=== PATIENT | female | born 1980 | race African-American/Black ===

== ENCOUNTER 2017-09-19 05:40 | Emergency (ER) | payer BC, OTHER ==
[~2017-09-19] VITALS: Ht 172.7 cm; Wt 190.5 kg
[~2017-09-19 05:40] MED LIST: ACCOLATE20 MG PO; ALBUTEROL INHAL17 GM IH; ASTEPRO205.5 MCG/; ATIVAN1 MG PO; AZELASTINE INH; AZITHROMYCIN 2250 MG PO; BACTRIM DS TAB1 EACH PO; BENADRYL25 MG PO; BENAZEPRIL HCL10 MG PO; COZAAR 25 MG TA25 M1 PO; DIPHENHIST50 MG PO; DYRENIUM100 MG PO; FAMOTIDINE PO; FLOVENT HFA 1110 MCG INH; GLUCOPHAGE XR500 MG PO; LOTREL 5-20 MG1 EACH PO; MINOCIN100 MG PO; NASONEX INH; NASONEX17 GM; NORCO 5-325 TA1 EACH PO; NORVASC10 MG; NORVASC10 MG PO; POTASSIUM20 PO; PREDNISONE 20 M20 MG PO; PREDNISONE 5 MG5 MG PO; REGLAN 10 MG TA10 MG PO; SINGULAIR 10 MG10 M1 PO; SSD25 GM TOP; VENTOLIN HFA 1818 GM; XANAX 0.5 MG0.5 MG PO; ZANTAC 150MG T150 MG PO; ZPAK PO; ZYRTEC-D TABLE1 EACH PO; ZYRTEC10 M2 PO; ZYRTEC10 M5
[2017-09-19] MEDS ORDERED: DOXYCYCLINE 10100 MG PO (06:47)
== END 2017-09-19 07:05 | disposition home or self-care (01) ==
LOC: ER 05:40
DX: L02.211 Cutaneous abscess of abdominal wall (principal); I10 Essential (primary) hypertension; E11.9 Type 2 diabetes mellitus without complications; E78.5 Hyperlipidemia, unspecified; J45.909 Unspecified asthma, uncomplicated; Z88.1 Allergy status to other antibiotic agents; Z91.013 Allergy to seafood; Z88.8 Allergy status to other drugs, medicaments and biological substances; Z91.018 Allergy to other foods

== ENCOUNTER 2018-03-30 23:14 | Emergency (ER) | payer BC, OTHER ==
[~2018-03-30] VITALS: Ht 172.7 cm; Wt 190.5 kg
[~2018-03-30 23:14] MED LIST changes: +DOXYCYCLINE 10100 MG PO
[2018-03-30 23:46] LABS: URINE BILIRUBIN NEGATIVE (Negative); URINE BLOOD NEGATIVE (Negative); URINE CLARITY CLEAR; URINE COLOR YELLOW; URINE GLUCOSE-RANDOM* NEGATIVE (Negative); URINE KETONES NEGATIVE (Negative); URINE LEUKOCYTES-REFLEX NEGATIVE (Negative); URINE NITRITE-REFLEX NEGATIVE (Negative); URINE PROTEIN (DIPSTICK) NEGATIVE (Negative); URINE SPECIFIC GRAVITY >= 1.030 (1.005-1.035); URINE UROBILINOGEN 0.2 E.U./dl (0.2-1.0)
[2018-03-31 00:32] LABS: ABSOLUTE NEUTROPHILS 10.3 thou/uL (1.4-8.2); BASOPHILS 0.8 % (0.0-2.0); EOSINOPHILS 2.7 % (0.0-3.0); HEMATOCRIT 33.5 % (37.0-47.0); HEMOGLOBIN 10.6 gm/dL (12.0-15.0); LYMPHOCYTES 22.1 % (24.0-44.0); MCH 22.9 pg (26.0-34.0); MCHC 31.7 g/dL (28.0-37.0); MCV 72.2 fL (80.0-100.0); MONOCYTES 7.4 % (1.0-8.0); RBC 4.63 mil/uL (4.20-5.00); RDW 18.3 % (10.5-14.5); WBC 15.3 thou/uL (4.0-11.0)
[2018-03-31 01:04] LABS: ANISOCYTOSIS 1+; HYPOCHROMASIA 1+; PLATELET COUNT 415 thou/uL (150-400)
[2018-03-31 01:05] LABS: OVALOCYTES OCCASIONAL
[2018-03-31 01:14] LABS: CALCIUM 8.4 mg/dL (8.5-10.1); CREATININE 0.9 mg/dL (0.6-1.0); POTASSIUM 3.5 mmol/L (3.5-5.1)
[2018-03-31] MEDS ORDERED: PREDNISONE 20 M20 MG PO (02:25)
[2018-03-31] MEDS ORDERED: AZITHROMYCIN 2250 MG PO (02:25)
[2018-03-31] MEDS ORDERED: VENTOLIN HFA 1818 GM INH (02:25)
[2018-03-31] MEDS ORDERED: MUCINEX DM ER1 EACH PO (02:25)
[2018-03-31] MEDS ORDERED: ALBUTEROL2.5 MG/31 INH (02:25)
== END 2018-03-31 02:54 | disposition home or self-care (01) ==
LOC: ER 23:14
PROVIDERS: Emergency Medicine
DX: J45.901 Unspecified asthma with (acute) exacerbation (principal); B96.89 Other specified bacterial agents as the cause of diseases classified elsewhere; I10 Essential (primary) hypertension; E11.9 Type 2 diabetes mellitus without complications; E78.5 Hyperlipidemia, unspecified; Z88.1 Allergy status to other antibiotic agents; Z91.018 Allergy to other foods; Z91.013 Allergy to seafood

== ENCOUNTER 2019-04-06 19:33 | Emergency (ER) | payer BC ==
[~2019-04-06] VITALS: Ht 172.7 cm; Wt 213.7 kg
[~2019-04-06 19:33] MED LIST changes: +ALBUTEROL2.5 MG/31 INH; +MUCINEX DM ER1 EACH PO; +VENTOLIN HFA 1818 GM INH
[2019-04-06] MEDS ORDERED: TRIAMTERENE-HC1 EAC3 PO (19:43)
[2019-04-06] MEDS ORDERED: CHLORTHALIDONE50 MG PO (19:44)
[2019-04-06] MEDS ORDERED: PANTOPRAZOLE SO40 M1 PO (19:45)
[2019-04-06 20:58] LABS: URINE BILIRUBIN NEGATIVE (Negative); URINE BLOOD NEGATIVE (Negative); URINE CLARITY CLEAR; URINE COLOR YELLOW; URINE GLUCOSE-RANDOM* NEGATIVE (Negative); URINE KETONES NEGATIVE (Negative); URINE LEUKOCYTES-REFLEX NEGATIVE (Negative); URINE NITRITE-REFLEX NEGATIVE (Negative); URINE PROTEIN (DIPSTICK) NEGATIVE (Negative); URINE SPECIFIC GRAVITY 1.015 (1.005-1.035); URINE UROBILINOGEN 0.2 E.U./dl (0.2-1.0)
[2019-04-06 23:00] VITALS: BP 127/59
== END 2019-04-06 23:00 | disposition home or self-care (01) ==
LOC: ER 19:33
PROVIDERS: Physician Assistant
DX: M79.604 Pain in right leg (principal); M79.605 Pain in left leg; M79.89 Other specified soft tissue disorders; M54.5 Low back pain; I10 Essential (primary) hypertension; J45.909 Unspecified asthma, uncomplicated; E11.9 Type 2 diabetes mellitus without complications; E78.5 Hyperlipidemia, unspecified; Z88.1 Allergy status to other antibiotic agents; Z91.018 Allergy to other foods; Z91.013 Allergy to seafood

== ENCOUNTER 2020-12-04 09:42 | Emergency (ER) | payer OTHER ==
[~2020-12-04] VITALS: Ht 172.7 cm; Wt 210.9 kg
[~2020-12-04 09:42] MED LIST changes: +CHLORTHALIDONE50 MG PO; +PANTOPRAZOLE SO40 M1 PO; +TRIAMTERENE-HC1 EAC3 PO
[2020-12-04] MEDS ORDERED: DOXYCYCLINE 10100 MG PO (11:35)
[2020-12-04] MEDS ORDERED: FLAGYL500 M1 PO (11:35)
[2020-12-04 11:40] VITALS: BP 166/78
[2020-12-06 14:07] LABS: HSV 1 IgG <0.91 index (0.00-0.90); HSV 2 IgG <0.91 index (0.00-0.90)
== END 2020-12-04 11:40 | disposition home or self-care (01) ==
LOC: ER 09:42
PROVIDERS: Emergency Medicine
DX: A59.01 Trichomonal vulvovaginitis (principal); N76.0 Acute vaginitis; B96.89 Other specified bacterial agents as the cause of diseases classified elsewhere; I10 Essential (primary) hypertension; E11.9 Type 2 diabetes mellitus without complications; J45.909 Unspecified asthma, uncomplicated; E78.5 Hyperlipidemia, unspecified; Z79.899 Other long term (current) drug therapy; Z88.1 Allergy status to other antibiotic agents; Z91.013 Allergy to seafood; Z91.018 Allergy to other foods